=== PATIENT | female | born 1965 | race American Indian/Alaskan Native ===

== ENCOUNTER 2016-09-15 21:27 | Emergency (ER) | payer OTHER ==
[~2016-09-15] VITALS: Ht 157.5 cm; Wt 81.7 kg
[~2016-09-15 21:27] MED LIST: ACYCLOVIR400 MG PO; ALBUTEROL SULF8.5 GM INH; BENADRYL25 MG PO; BENZONATATE200 MG PO; CITRUCEL POWDE454 GM PO; CLINDAMYCIN HC300 MG PO; DELTASONE20 MG PO; DICYCLOMINE HCL20 MG PO; DOXYCYCLINE HY100 MG PO; FIORICET 50-321 EACH PO; FLEET ENEMA133 ML PR; GUANFACINE HCL1 MG PO; HYDROCODON-ACE1 EA10 PO; HYDROCODON-ACE1 EA12 PO; HYDROXYZINE HCL25 MG PO; LACTULOSE10 GM/15 M PO; LIDOCAINE 4% K1 EACH TP; MEDROL4 M1 PO; METFORMIN HCL500 MG PO; METFORMIN PO; METHADONE HCL10 MG PO; METHOCARBAMOL750 MG PO; NITROFURANTOIN100 M1 PO; NORCO 10-325 T1 EACH PO; PRILOSEC10 MG PO; ROBAXIN-750750 MG PO; VITAMIN D5000 UNIT PO
--- NOTE | 2016-09-16 07:51 | EKG ---
[facility] [address] [facility] [address] [place], [place] [address] Signed Normal sinus rhythm Normal ECG No previous ECGs available Confirmed by EMELIA DURAN MD ([id number]) on 09/16/2016 7:50:56 AM Electronically Signed By: EMELIA DURAN MD 09/16/16 0751 PATIENT NAME: NOLA HERNANDEZ Electrocardiogram DATE OF : 63 PHYSICIAN: EMELIA DURAN MD REPORT #: [id number] REPORT IS CONFIDENTIAL AND NOT TO BE RELEASED WITHOUT AUTHORIZATION
== END 2016-09-16 | disposition home or self-care (01) ==
LOC: ED 21:27
DX: R07.89 Other chest pain (principal); J45.909 Unspecified asthma, uncomplicated; I10 Essential (primary) hypertension; F17.200 Nicotine dependence, unspecified, uncomplicated; Z90.49 Acquired absence of other specified parts of digestive tract; Z88.8 Allergy status to other drugs, medicaments and biological substances; Z88.5 Allergy status to narcotic agent; Z88.2 Allergy status to sulfonamides; Z88.1 Allergy status to other antibiotic agents; Z79.899 Other long term (current) drug therapy; Z79.84 Long term (current) use of oral hypoglycemic drugs
CPT/HCPCS: 71020; 80053; 82550; 82553; 83874; 84484; 85025; 93005; 93010; 99284

== ENCOUNTER 2016-09-21 08:58 | Emergency (ER) | payer OTHER ==
[~2016-09-21] VITALS: Ht 157.5 cm; Wt 81.7 kg
[2016-09-21] MEDS ORDERED: CLONAZEPAM1 MG PO (09:12)
[2016-09-21] MEDS ORDERED: ALLOPURINOL100 MG PO (09:12)
[2016-09-21] MEDS ORDERED: CLONIDINE HCL0.1 MG PO (09:13)
[2016-09-21] MEDS ORDERED: GLUCOPHAGE1000 MG PO (09:15)
[2016-09-21] MEDS ORDERED: MACROBID 100 M100 MG PO (12:11)
== END 2016-09-21 12:45 | disposition home or self-care (01) ==
LOC: ED 08:58
DX: N39.0 Urinary tract infection, site not specified (principal); R10.9 Unspecified abdominal pain; G89.29 Other chronic pain; J45.909 Unspecified asthma, uncomplicated; I10 Essential (primary) hypertension; Z87.891 Personal history of nicotine dependence; Z90.49 Acquired absence of other specified parts of digestive tract; Z88.8 Allergy status to other drugs, medicaments and biological substances; Z88.1 Allergy status to other antibiotic agents; Z88.5 Allergy status to narcotic agent; Z88.2 Allergy status to sulfonamides; Z79.899 Other long term (current) drug therapy
CPT/HCPCS: 80053; 81001; 83690; 85025; 87077; 87088; 87186; 96361; 96374; 96375; 99284; J0696; J1200; J2405; J7030

== ENCOUNTER 2018-09-04 22:08 | Emergency (ER) | payer OTHER ==
[~2018-09-04] VITALS: Ht 157.5 cm; Wt 86.2 kg
[~2018-09-04 22:08] MED LIST changes: +ALLOPURINOL100 MG PO; +CLONAZEPAM1 MG PO; +CLONIDINE HCL0.1 MG PO; +DICLOFENAC SODI75 MG PO; +GLUCOPHAGE1000 MG PO; +MACROBID 100 M100 MG PO; +PROVENTIL HFA6.7 GM INH; +ZOLPIDEM TARTRAT5 MG
--- OUTSIDE RECORDS SUMMARY | 2018-09-04 22:10 | XMS ---
PreManage Notification: NOLA HERNANDEZ Security Residential Appliance Repair Technician Events No recent Security Events currently on file CRITERIA MET - Group Notification - [facility] - Has Care Guidelines - PDMP CARE PROVIDERS DR KAITLYNN GAYLE Primary Care 08/30/2016-Current PHONE: [phone] Guidelines Source: [facility] Guidelines Date: 09/24/2016 Care Coordination: ENCOURAGE PATIENT TO USE PCP OR CLINICS FOR NON-EMERGENT PROBLEMS. SHE CAN CALL PIT INSPECTOR [facility] FOR HELP OR QUESTIONS AT [phone]. E.D. VISIT COUNT (12 MO.) 2 [facility]. TOTAL 2 NOTE: Visits indicate total known visits. 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
[2018-09-05] MEDS ORDERED: KEFLEX500 MG PO (00:27)
[2018-09-05] MEDS ORDERED: PROMETHAZINE HC25 M1 PR (00:28)
[2018-09-05] MEDS ORDERED: PROTONIX40 MG PO (00:28)
[2018-09-05] MEDS ORDERED: NORCO 5-325 TA1 EACH PO (00:28)
== END 2018-09-05 00:51 | disposition home or self-care (01) ==
LOC: ED 22:08
DX: N39.0 Urinary tract infection, site not specified (principal); F17.200 Nicotine dependence, unspecified, uncomplicated; I10 Essential (primary) hypertension; Z90.49 Acquired absence of other specified parts of digestive tract; Z88.1 Allergy status to other antibiotic agents; Z88.2 Allergy status to sulfonamides; Z88.5 Allergy status to narcotic agent; Z88.8 Allergy status to other drugs, medicaments and biological substances; Z79.899 Other long term (current) drug therapy
CPT/HCPCS: 74176; 80053; 81001; 83690; 85025; 96374; 96375; 96376; 99284-25; J1170; J1885; J2405; J2550

== ENCOUNTER 2020-05-02 19:56 | Emergency (ER) | payer OTHER ==
[~2020-05-02] VITALS: Ht 157.5 cm; Wt 86.2 kg
[~2020-05-02 19:56] MED LIST changes: +KEFLEX500 MG PO; +NORCO 5-325 TA1 EACH PO; +PROMETHAZINE HC25 M1 PR; +PROTONIX40 MG PO
[2020-05-02] MEDS ORDERED: HYDROCODON-ACE1 EA10 PO (21:42)
[2020-05-02] MEDS ORDERED: VALACYCLOVIR1000 MG PO (21:42)
--- NOTE | 2020-05-03 19:12 | EKG ---
[facility] [address] [facility] [place], [place] [address] Signed Sinus tachycardia Otherwise normal ECG When compared with ECG of 15-SEP-2016 21:33, Non-specific change in ST segment in Anterior leads Confirmed by EMELIA DURAN MD ([id number]) on 05/03/2020 7:12:11 PM Electronically Signed By: EMELIA DURAN MD 05/03/201911 PATIENT NAME: NOLA HERNANDEZ WAYLON Electrocardiogram DATE OF : 63 PHYSICIAN: EMELIA DURAN MD REPORT #: [id number] REPORT IS CONFIDENTIAL AND NOT TO BE RELEASED WITHOUT AUTHORIZATION
== END 2020-05-02 22:09 | disposition home or self-care (01) ==
LOC: ED 19:56
DX: B02.9 Zoster without complications (principal); J45.909 Unspecified asthma, uncomplicated; I10 Essential (primary) hypertension; Z87.891 Personal history of nicotine dependence; Z88.8 Allergy status to other drugs, medicaments and biological substances; Z88.1 Allergy status to other antibiotic agents; Z88.5 Allergy status to narcotic agent; Z88.2 Allergy status to sulfonamides; Z79.899 Other long term (current) drug therapy; Z79.84 Long term (current) use of oral hypoglycemic drugs
CPT/HCPCS: 71045; 80053; 83735; 84484; 85025; 93005; 93010; 96374; 96375; 99285-25; J1170; J2405

== ENCOUNTER 2020-05-11 20:02 | Emergency (ER) | payer OTHER ==
[~2020-05-11] VITALS: Ht 157.5 cm; Wt 86.2 kg
[~2020-05-11 20:02] MED LIST changes: +VALACYCLOVIR1000 MG PO
[2020-05-11] MEDS ORDERED: HYDROCODON-ACE1 EA10 PO (20:43)
--- NOTE | 2020-05-12 19:09 | EKG ---
[facility] [address] [facility] [place], [place] [address] Signed Normal sinus rhythm Normal ECG When compared with ECG of 02-MAY-2020 20:01, No significant change was found Confirmed by GORDON YOON DO ([id number]) on 05/12/2020 7:09:08 PM Electronically Signed By: GORDON YOON DO 05/12/20 1909 PATIENT NAME: NOLA HERNANDEZ Electrocardiogram DATE OF : 63 PHYSICIAN: GORDON YOON DO REPORT #: [id number] REPORT IS CONFIDENTIAL AND NOT TO BE RELEASED WITHOUT AUTHORIZATION
== END 2020-05-11 21:00 | disposition home or self-care (01) ==
LOC: ED 20:02
DX: B02.9 Zoster without complications (principal); J45.909 Unspecified asthma, uncomplicated; I10 Essential (primary) hypertension; M10.9 Gout, unspecified; Z87.891 Personal history of nicotine dependence; Z88.8 Allergy status to other drugs, medicaments and biological substances; Z88.1 Allergy status to other antibiotic agents; Z88.5 Allergy status to narcotic agent; Z88.2 Allergy status to sulfonamides; Z79.899 Other long term (current) drug therapy; Z79.84 Long term (current) use of oral hypoglycemic drugs
CPT/HCPCS: 93005; 93010; 99283-25

== ENCOUNTER 2020-05-13 22:32 | Emergency (ER) | payer OTHER ==
[~2020-05-13] VITALS: Ht 157.5 cm; Wt 86.2 kg
== END 2020-05-13 22:58 | disposition home or self-care (01) ==
LOC: ED 22:32
DX: B02.9 Zoster without complications (principal); Z76.0 Encounter for issue of repeat prescription; J45.909 Unspecified asthma, uncomplicated; I10 Essential (primary) hypertension; Z87.891 Personal history of nicotine dependence; Z88.8 Allergy status to other drugs, medicaments and biological substances; Z88.1 Allergy status to other antibiotic agents; Z88.5 Allergy status to narcotic agent; Z88.2 Allergy status to sulfonamides; Z79.899 Other long term (current) drug therapy; Z79.84 Long term (current) use of oral hypoglycemic drugs
CPT/HCPCS: 99281

== ENCOUNTER 2024-06-30 23:51 | Emergency (ER) | payer OTHER ==
[~2024-06-30] VITALS: Ht 157.5 cm; Wt 84.1 kg
[~2024-06-30 23:51] MED LIST changes: +VENTOLIN HFA18 GM INH; +ZANAFLEX4 MG PO; +ZOLPIDEM TARTRAT5 MG PO
[2024-07-01] MEDS ORDERED: DOXYCYCLINE HY100 M3 PO (00:02)
[2024-07-01 00:20] LABS: BILIRUBIN, URINE NEGATIVE (negative); BLOOD/HGB, URINE MODERATE (Negative); KETONE, URINE NEGATIVE (Negative); LEUK ESTERASE, URINE MODERATE (negative); NITRITE, URINE POSITIVE (negative)
[2024-07-01 00:25] LABS: EPITHELIAL CELLS, URINE SQUAMOUS 1+ /lpf (0-1+)
[2024-07-01 00:26] LABS: BACTERIA, URINE 4+ /hpf (negative); CASTS, URINE NONE SEEN \\lpf; COLLECTION TYPE, URINE CLEAN CATCH; CRYSTALS, URINE NONE SEEN (0-1+); REFLEX CULTURE, URINE Yes (No); WHITE BLOOD CELLS, URINE >50 /HPF (0-5)
[2024-07-01] MEDS ORDERED: PYRIDIUM200 MG PO (00:29)
[2024-07-01] MEDS ORDERED: MACROBID 100 M100 MG PO (00:29)
[2024-07-01 00:40] VITALS: BP 173/87
[2024-07-01] MEDS ORDERED: PHENAZOPYRIDINE HCL 100 MG TAB PO ONE (00:45)
[2024-07-01] MEDS ORDERED: NITROFURANTOIN MONOHYD MACROCR 100 MG HOME.PACK PO ONE (00:45)
== END 2024-07-01 00:41 | disposition home or self-care (01) ==
LOC: ED 23:51
PROVIDERS: Family Medicine
DX: N39.0 Urinary tract infection, site not specified (principal); J45.909 Unspecified asthma, uncomplicated; I10 Essential (primary) hypertension; Z88.2 Allergy status to sulfonamides; Z88.1 Allergy status to other antibiotic agents; Z88.5 Allergy status to narcotic agent; Z91.048 Other nonmedicinal substance allergy status; Z88.8 Allergy status to other drugs, medicaments and biological substances; Z87.891 Personal history of nicotine dependence
CPT/HCPCS: 81001; 87088; 99283